=== PATIENT | male | born 1980 | race Two or more races ===

== ENCOUNTER 2021-08-16 21:22 | Emergency (ER) | payer SELFPAY ==
[~2021-08-16] VITALS: Ht 182.9 cm; Wt 96.2 kg
[2021-08-16 21:22] VITALS: BP 114/81
[2021-08-17] MEDS ORDERED: NEOMYCIN-BACITRACIN-POLYM UNITDOSE PKG TOP OINT TOP ONE
[2021-08-17] MEDS ORDERED: cefTRIAXone SOD 1,000 MG VL IM ONE (00:15)
== END 2021-08-17 00:47 | disposition home or self-care (01) ==
LOC: ER 21:22
DX: S01.81XA Laceration without foreign body of other part of head, initial encounter (principal); W22.8XXA Striking against or struck by other objects, initial encounter; Y93.89 Activity, other specified; Y92.89 Other specified places as the place of occurrence of the external cause; Y99.8 Other external cause status
CPT/HCPCS: 12011; 70486; 96372; 99284; J0696